=== PATIENT | male | born 1970 | race Caucasian/White ===

== ENCOUNTER 2020-05-06 20:23 | Emergency (ER) | payer BC ==
[2020-05-06 20:32] VITALS: BP 118/70; PULSE 71; TEMP 97.8; BMI 24.3
--- NOTE | 2020-05-06 21:06 | PDOC ---
History of Present Illness - History of Present Illness Initial Comments: 05/06/20 22:37 49yo M w/ hx of EtOH abuse, HCV, bipolar disorder type 2, newly <Tan Robert - Last Filed: 05/06/20 23:27> - History of Present Illness Initial Comments: The patient is a 49 year old male with a significant PMH of Hepatitis, Bipolar disorder II, and anxiety, who presents to the emergency department for 6 days of diarrhea and nausea. Patient reports that he recently started taking a new Rx of [place] prior to onset of diarrhea and nausea. Patient endorses increased urination, a hand tremor, and blood in stool. Patient denies fever, chills, chest pain, SOB, palpitation, dizziness, weakness, V, abdominal pain, leg swelling, No sick contacts or travel. Changes in medications as noted above. Allergies: NKDA Past Medical History: Hepatitis, Bipolar disorder II, and anxiety Social history: Vapes. Does not drink (20 days) Surgical history: none Meds: as documented in EMR PMD: Dr. Mallory Ennis 05/06/20 23:52 <Deborah Ma - Last Filed: 05/06/20 23:56> - General Chief Complaint: Diarrhea Stated Complaint: NAUSEA/DIARRHEA Time Seen by Provider: 05/06/20 21:05 Past History - Medical History COPD: No GI Disorders: Yes (Hepatitis (unsure which kind)) Psychiatric Problems: Yes (Bipolar) - Immunization History Td Vaccination: Yes (2010) - Psycho-Social/Smoking History Smoking Status: Yes Smoking History: Never smoked Number of Cigarettes Smoked Daily: 20 - Substance Abuse Hx (Audit-C & DAST Scrn) How often the patient has a drink containing alcohol: Never Score: In Men: 4 or > Positive; In Women: 3 or > Positive: 0 Screen Result (Pos requires Nsg. Audit-10AR): Negative <Tan Robert - Last Filed: 05/06/20 23:27> <Deborah Ma - Last Filed: 05/06/20 23:56> - Medical History Allergies/Adverse Reactions: Allergies Allergy/AdvReac Type Severity Reaction Status Date / Time No Known Allergies Allergy Verified 04/20/13 15:16 Home Medications: Ambulatory Orders LORazepam [Ativan] 1 mg PO DAILY PRN #5 tablet 04/20/13 [place] Citrate [[place]] 450 mg PO BID 04/20/13 Diazepam [Valium] 5 mg PO Q8H PRN #10 tablet MDD 3 05/06/20 Review of Systems - Review of Systems Able to Perform ROS?: Yes Constitutional: Yes: See HPI. No: Fever HEENTM: Yes: See HPI Respiratory: Yes: See HPI. No: Cough, Shortness of Breath Cardiac (ROS): Yes: See HPI. No: Chest Pain ABD/GI: Yes: See HPI, Diarrhea, Nausea. No: Vomiting : Yes: See HPI. No: Dysuria, Flank Pain, Hematuria Musculoskeletal: Yes: See HPI, Back Pain Integumentary: Yes: See HPI. No: Change in Color Neurological: Yes: See HPI, Tremors. No: Headache, Numbness, Weakness Psychiatric: Yes: Anxiety Endocrine: Yes: See HPI, Increased Thirst, Increased Urine Hematologic/Lymphatic: Yes: See HPI All Other Systems: Reviewed and Negative <Deborah Ma - Last Filed: 05/06/20 23:56> *Physical Exam - Vital Signs Last Vital Signs Temp Pulse Resp BP Pulse Ox 97.8 F 71 18 118/70 100 05/06/20 20:27 05/06/20 20:27 05/06/20 20:27 05/06/20 20:27 05/06/20 20:27 <Tan Robert - Last Filed: 05/06/20 23:27> - Vital Signs Last Vital Signs Temp Pulse Resp BP Pulse Ox 97.8 F 71 18 118/70 100 05/06/20 20:27 05/06/20 20:27 05/06/20 20:27 05/06/20 20:27 05/06/20 20:27 - Physical Exam 05/06/20 23:53 General: Well appearing, awake and alert, NAD. HEENT: NCAT, PERRL, EOMI, clear conjunctiva, anicteric, moist mucous membranes, clear oropharynx, no oral lesions.. Neck: neck supple, FROM Resp: CTAB, normal and even respirations, no respiratory distress CVS: RRR, no murmurs, 2+ peripheral pulses throughout, no peripheral edema Abdomen: soft, NTND, no rebound or guarding. Back: nontender, normal inspection and ROM] MSK: no edema, QUINN x4, ROM intact. No clubbing or cyanosis. normal bulk and tone. Extremities: no calf tenderness Neuro: alert, oriented appropriately; no focal neurologic deficits, +tremors speech clear. Skin: warm and well perfused, cap refill <2 sec, normal color <Deborah Ma - Last Filed: 05/06/20 23:56> ED Treatment Course - LABORATORY CBC & Chemistry Diagram: 05/06/20 22:00 05/06/20 22:00 <Tan Robert - Last Filed: 05/06/20 23:27> - LABORATORY CBC & Chemistry Diagram: 05/06/20 22:00 05/06/20 22:00 - ADDITIONAL ORDERS Additional order review: Laboratory Results 05/06/20 05/06/20 05/06/20 22:00 22:00 22:00 Sodium 139 Potassium 4.3 Chloride 108 H Carbon Dioxide 25 Anion Gap 6 L BUN 23.8 H Creatinine 1.0 Est GFR (CKD-EPI)AfAm 103.42 Est GFR (CKD-EPI)NonAf 89.23 Random Glucose 122 H Calcium 8.5 Total Bilirubin 2.1 H AST 55 H ALT 106 H Alkaline Phosphatase 95 Ammonia 32.70 H Total Protein 6.0 L Albumin 2.7 L TSH 0.27 L 05/06/20 22:00 RBC 3.25 L MCV 107.7 H MCHC 33.6 RDW 23.3 H MPV 9.8 D Neutrophils % 88.1 H Lymphocytes % 6.3 L D Monocytes % 5.3 Eosinophils % 0.1 D Basophils % 0.2 - Medications Given in the ED: ED Medications Discontinued Medications Generic Name Dose Route Start Last Admin Trade Name Freq PRN Reason Stop Dose Admin Diazepam 10 mg 05/06/20 21:43 05/06/20 22:13 Valium - PO 05/06/20 21:44 10 mg ONCE ONE Administration Lactated Ringer's 1,000 ml 05/06/20 21:07 05/06/20 22:13 Lactated Ringers Solution IV 05/06/20 21:08 1,000 ml ONCE ONE Administration <Deborah Ma - Last Filed: 05/06/20 23:56> Discharge - Discharge Information Problems reviewed: Yes <Tan Robert - Last Filed: 05/06/20 23:27> - Discharge Information Problems reviewed: Yes - Admission No <Deborah Ma - Last Filed: 05/06/20 23:56> - Discharge Information Clinical Impression/Diagnosis: Tremor [place] carbonate adverse reaction Qualifiers: Encounter type: initial encounter Qualified Code(s): T43.595A - Adverse effect of other antipsychotics and neuroleptics, initial encounter Condition: Improved Disposition: HOME - Additional Discharge Information Prescriptions: Diazepam [Valium] 5 mg PO Q8H PRN #10 tablet MDD 3 PRN Reason: Agitation - Follow up/Referral Referrals: Mallory Ennis MD [Non Staff, Medical] - - Patient Discharge Instructions Patient Printed Discharge Instructions: [place] Additional Instructions: You were treated in the ED after developing symptoms possibly related to your lithium use. We tested your blood and looked at your heart's electrical rhythm. We determined you safe for discharge. However, your TSH, thyroid stimulating hormone, level was low. This could indicate a number of things and warrants follow up with your primary doctor. Also, your lithium level result is pending and should be avai lable tomorrow or Friday. You may call for the result. Please follow up with your psychiatrist AND your primary care doctor within 24hours of leaving the ED and ask to make a sooner appointment. Please come back to the ED with any worsening or severe symptoms.
[2020-05-06] MEDS ORDERED: LACTATED RINGERS SOLUTION 1000 ML INFUS.BAG IV ONE (21:07)
[2020-05-06] MEDS ORDERED: diazePAM 5 MG TABLET PO ONE (21:43)
[2020-05-06] MEDS ORDERED: diazePAM 5 MG TABLET ONE (21:50)
[2020-05-06 22:45] LABS: BASO % 0.2 % (0-2.0); EOS % 0.1 % (0-4.5); HEMOGLOBIN 11.7 GM/dL (11.7-16.9); LYMPH % 6.3 % (8-40); MCH 36.2 pg (25.7-33.7); MCHC 33.6 g/dl (32.0-35.9); MEAN CELL VOLUME 107.7 fl (80-96); MEAN PLT VOLUME 9.8 fl (7.5-11.1); MONO % 5.3 % (3.8-10.2); NEUT % 88.1 % (42.8-82.8); PLATELET COUNT 104 K/MM3 (134-434); RBC 3.25 M/mm3 (4.00-5.60); RDW 23.3 % (11.9-15.9); WHITE BLOOD COUNT 6.2 K/mm3 (4.0-10.0)
[2020-05-06 22:54] LABS: ALBUMIN 2.7 g/dl (3.4-5.0); BILIRUBIN,TOTAL 2.1 mg/dL (0.2-1); BLOOD UREA NITROGEN 23.8 mg/dL (7-18); CALCIUM 8.5 mg/dL (8.5-10.1); POTASSIUM 4.3 mmol/L (3.5-5.1)
--- NOTE | 2020-05-06 23:13 | PDOC ---
Documentation entered by Molina Dunaway SCRIBE, acting as scribe for Deborah Ma MD. Deborah Ma MD: This documentation has been prepared by the Emelyn araiza Aaron, SCRIBE, under my direction and personally reviewed by me in its entirety. I confirm that the documentation accurately reflects all work, treatment, procedures, and medical decision making performed by me. Attending Attestation - Resident Resident Name: Tan Robert - ED Attending Attestation I have performed the following: I have examined & evaluated the patient, The case was reviewed & discussed with the resident, I agree w/resident's findings & plan - HPI HPI: 05/06/20 21:56 HPI The patient is a 49 year old male with a significant PMH of Hepatitis, Bipolar disorder II, and anxiety, who presents to the emergency department for 6 days of diarrhea and nausea. Patient reports that he recently started taking a new Rx of [place] prior to onset of diarrhea and nausea. Patient endorses increased urination, a hand tremor, and blood in stool. Patient denies fever, chills, chest pain, SOB, palpitation, dizziness, weakness, V, abdominal pain, leg swelling, No sick contacts or travel. Changes in medications as noted above. Allergies: NKDA Past Medical History: Hepatitis, Bipolar disorder II, and anxiety Social history: Vapes. Does not drink (20 days) Surgical history: none Meds: as documented in EMR PMD: Dr. Mallory Ennis - Physicial Exam PE: 05/06/20 23:05 Agree with the resident's HPI and PE as documented in the electronic medical record. NAD, well appearing, EOMI, PERRL, nl conjunctiva, anicteric; neck supple. lungs clear, RRR, abdomen soft nontender. no rebound, guarding. Back nontender. QUINN x4, no focal neuro deficits. No peripheral edema. normal color for ethnicity, WWP. +tremors - Medical Decision Making 05/06/20 23:10 Vital Signs Temp Pulse Resp BP Pulse Ox 97.8 F 71 18 118/70 100 05/06/20 20:27 05/06/20 20:27 05/06/20 20:27 05/06/20 20:27 05/06/20 20:27 vitals reviewed, wnl, reassuring pt well appearing, some tremors no systemic sx, no fever ddx. SIADH, psychogenic polydipsia, electrolyte/metabolic derangements, anemia, infection, medication side effect lithium level pending labs and lytes are wnl. pt given IVF, hydration. pt able to crystal PO intake also valium for his tremors, has h/o etoh abuse and in remission. also for anxiety no SI or HI or liv or depression or psychiatric features, has follow up with psych in 10 days also told to f/u pmd, thyroid levels and medical management. Pt to be discharged in stable condition. Patient and family made aware of clinical impression, treatment recommendations and disposition plan, return precautions discussed (including but not limited to new or persistent/worsening symptoms, pain, fevers, or signs of infection, chest pain, respiratory distress, inability to tolerate oral intake, dehydration, syncope, or neurologic changes). Follow up with PMD and/or specialist as recommended, follow up information provided, take medications as instructed for duration of time. continue with supportive care, avoid triggers and precipitants. All questions answered to patient's satisfaction and expressed understanding and comfort with this. At the time of discharge, the patient is alert, clinically improved, tolerating po and verbalizes understanding of instructions, satisfied with the care received and felt comfortable with the plan. Patient does not suffer from an acute life- threatening medical condition at this time and is safe for outpatient follow- up. Heart Score/ECG Review #1 ECG reviewed & interpreted by me at: 21:45 General ECG Interpretation: Normal Rate, Normal Intervals 05/06/20 23:12 EKG normal sinus rhythm 60 bpm, no interval abnormalities, narrow QRS, ST and T wave segments and morphology normal. Nonspecific T wave abnormalities Discharge - Discharge Information Problems reviewed: Yes Clinical Impression/Diagnosis: Tremor [place] carbonate adverse reaction Qualifiers: Encounter type: initial encounter Qualified Code(s): T43.595A - Adverse effect of other antipsychotics and neuroleptics, initial encounter Condition: Improved Disposition: HOME - Admission No - Follow up/Referral - Patient Discharge Instructions Patient Printed Discharge Instructions: [place] Additional Instructions: You were treated in the ED after developing symptoms possibly related to your lithium use. We tested your blood and looked at your heart's electrical rhythm. We determined you safe for discharge. However, your TSH, thyroid stimulating hormone, level was low. This could indicate a number of things and warrants follow up with your primary doctor. Also, your lithium level result is pending and should be available tomorrow or Friday. You may call for the result. Please follow up with your psychiatrist AND your primary care doctor within 24hours of leaving the ED and ask to make a sooner appointment. Please come back to the ED with any worsening or severe symptoms. - Post Discharge Activity
[2020-05-06 23:52] LABS: ANISOCYTOSIS 2+; MACROCYTOSIS 2+
[2020-05-06 23:53] LABS: PLATELET ESTIMATE DECREASED
--- NOTE | 2020-05-07 21:45 | EKG ---
Test Reason : Blood Pressure : / mmHG Vent. Rate : 060 BPM Atrial Rate : 060 BPM P-R Int : 128 ms QRS Dur : 094 ms QT Int : 412 ms P-R-T Axes : 048 006 024 degrees QTc Int : 412 ms NORMAL SINUS RHYTHM VOLTAGE CRITERIA FOR LEFT VENTRICULAR HYPERTROPHY ABNORMAL ECG WHEN COMPARED WITH ECG OF 20-APR-2013 18:26, NO SIGNIFICANT CHANGE WAS FOUND Confirmed by Taya Loyd ([id number]) on 05/07/2020 9:45:34 PM Referred By: Confirmed By:Taya Loyd
== END 2020-05-07 00:09 | disposition home or self-care (01) ==
LOC: JER 20:23
DX: R25.1 Tremor, unspecified (principal); T43.595A Adverse effect of other antipsychotics and neuroleptics, initial encounter
CPT/HCPCS: 36415; 80053; 80178; 82140; 84443; 85025; 93005; 93010; 99284-25

== ENCOUNTER 2024-05-11 19:13 | Emergency (ER) | payer BC ==
[2024-05-11 19:46] VITALS: BMI 27.3
[2024-05-11] MEDS ORDERED: diazePAM 5 MG TABLET ONE ×2 (20:06→21:37)
[2024-05-11] MEDS: diazePAM 5 MG TABLET PO ONE ×2 (20:08→21:44)
[2024-05-11 20:20] LABS: HEMATOCRIT 44.4 % (35.4-49); MCHC 33.9 g/dl (32.0-35.9); MEAN CELL VOLUME 91.5 fl (80-96); MEAN PLT VOLUME 10.3 fl (7.5-11.1); PLATELET COUNT 74 10^3/uL (134-434); RBC 4.85 M/mm3 (4.00-5.60); RDW 14.6 % (11.9-15.9); WHITE BLOOD COUNT 10.1 K/mm3 (4.0-10.0)
[2024-05-11 20:43] LABS: POTASSIUM 4.3 mmol/L (3.5-5.1)
[2024-05-11 20:45] LABS: CALCIUM 8.8 mg/dL (8.5-10.1)
[2024-05-11 20:46] LABS: ALBUMIN 4.1 g/dl (3.4-5.0); BLOOD UREA NITROGEN 29.2 mg/dL (7-18); MAGNESIUM 2.3 mg/dL (1.8-2.4)
[2024-05-11 20:50] LABS: BILIRUBIN,TOTAL 0.9 mg/dL (0.2-1); CREATININE 1.2 mg/dL (0.55-1.3); TOT PROT 7.4 g/dl (6.4-8.2)
[2024-05-11 20:58] LABS: ANISOCYTOSIS 1+; MACROCYTOSIS 0
[2024-05-11] MEDS ORDERED: ALBUTEROL SO4 2.5/IPRATROPIUM 0.5 INH SOL 3 ML VIAL.NEB. NEB ONE (21:31)
[2024-05-11] MEDS: ALBUTEROL SO4 2.5/IPRATROPIUM 0.5 INH SOL 3 ML VIAL.NEB. NEB ONE (21:37)
[2024-05-11] MEDS ORDERED: diazePAM CARPU-JECT 10 MG/2 ML DISP.SYRIN ONE (23:43)
[2024-05-11] MEDS ORDERED: chlordiazePOXIDE HCL 25 MG CAPSULE ONE (23:44)
[2024-05-11] MEDS: diazePAM CARPU-JECT 10 MG/2 ML DISP.SYRIN IVPUSH ONE (23:59)
[2024-05-11] MEDS: chlordiazePOXIDE HCL 25 MG CAPSULE PO ONE (23:59)
[2024-05-12 04:18] VITALS: BP 105/66; PULSE 67; RESP 15; TEMP 98.2
== END 2024-05-12 06:07 | disposition home or self-care (01) ==
LOC: JER 19:13
PROC: 3E033GC Introduction of Other Therapeutic Substance into Peripheral Vein, Percutaneous Approach (ICD-10-PCS; principal; 2024-05-11)
PROC: 3E0F7GC Introduction of Other Therapeutic Substance into Respiratory Tract, Via Natural or Artificial Opening (ICD-10-PCS; 2024-05-11)
DX: R07.89 Other chest pain (principal); R00.2 Palpitations; R42 Dizziness and giddiness; R06.02 Shortness of breath; F41.9 Anxiety disorder, unspecified
CPT/HCPCS: 36415; 71046-TC-FY; 71275-TC; 80053; 80178; 83735; 84439; 84443; 84484; 85025; 93005; 93010; 99285-25; Q9967